=== PATIENT | female | born 1945 ===

== ENCOUNTER 2016-08-25 09:47 | Emergency (ER) | payer MEDICARE, OTHER ==
[2016-08-25 10:07] VITALS: BP 137/82
--- NOTE | 2016-08-25 10:41 | ERNOTE ---
ENT HPI Date of Service: 08/25/16 Time Seen by Provider: 08/25/16 10:12 Source: patient, family Exam Limitations: no limitations - Immun/Allergies/Home Medications Immunizations: IMMUNIZATION HX History of Influenza Vaccine No Hx Pneumococcal Vaccination No Allergies/Adverse Reactions: Allergies Allergy/AdvReac Type Severity Reaction Status Date / Time penicillin G Allergy Verified 08/25/16 10:08 Sulfa (Sulfonamide Allergy Verified 08/25/16 10:08 Antibiotics) tetanus & diphtheria toxoids Allergy Verified 08/25/16 10:08 Home Medications: HOME MEDICATIONS Levothyroxine Sodium [Synthroid] 50 mcg PO DAILY 08/25/16 [Last Taken Unknown] Lisinopril/Hydrochlorothiazide [Lisinopril-Hctz 20-12.5 mg Tab] 1 each PO BID [Last Taken Unknown] - History of Present Illness Narrative: Pt. comes in with c/o L eye pain and swelling for four days. Two days ago pt. was seen by her PCP an was restarted on previous prescription of gentamycin ointment and pt. states that eye drainage and swelling have worsened since restarting this medication. Pt. states that the medication is a old bottle of medication and she did not get a new prescription. Pt. states that light causes her a headache on the L hindu and nothing alleviates the pain or swelling. Review of Systems - Review of Systems Constitutional: Present: no symptoms reported. Absent: chills, weakness, malaise EYE: Present: eye pain, eye discharge, tearing. Absent: blurred vision, double vision, vision changes ENT: Present: nose congestion. Absent: ear pain, pulling on ears, nasal drainage, sore throat Respiratory: Present: no symptoms reported. Absent: shortness of breath, cough , wheezing Cardiology: Present: no symptoms reported. Absent: chest pain, palpitations, edema Gastrointestinal/Abdominal: Present: no symptoms reported. Absent: nausea, vomiting, diarrhea Genitourinary: Present: no symptoms reported Musculoskeletal: Present: no symptoms reported. Absent: back pain, joint pain Skin: Present: no symptoms reported. Absent: rash, change in color Neurological: Present: headache. Absent: dizziness/light-headedness, weakness, numbness, tingling All Other Systems: All systems neg except as marked - Patient's Past Medical History Patient History - Medical: Hypothyroidism Patient History - Cardiac/Respiratory: Hypertension, Hyperlipidemia Patient History - Cancer: No Hx of Cancer Patient History - Other: None - Social History Living Situations: home Psych History: No pertinent hx - Immunizations Hx Pneumococcal Vaccination: No History of Influenza Vaccine: No Physical Exam - Physical Exam General Appearance: Present: wd/wn, alert, no apparent distress Eye Exam: Normal inspection: right, PERRL: bilateral, EOMI: bilateral, Sclera injection: left, Eye drainage: left, Eyelid inflammation: left, Photophobia: left Ears, Nose, Throat: Present: normal ENT inspection, hearing grossly normal, normal pharynx Neck: Present: normal inspection, nontender. 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 Absent: pallor, skin rash ED Progress - Date and Time Seen: Date and Time: 08/25/16 10:29 Pt. refused further exam of eye with flourescein stain and am unable to determine extent of injury without this exam. Pt. able to obtain immediate appointment with her opthamologist while this provider in room. Feel that this would be most appropriate for pt. at this time given pt referral. Pt. understands that she is leaving against medical advice. - Vital Signs Patient's Vital Signs:: I have reviewed the patient's vital signs. Vital Signs: Vital Signs 08/25/16 10:00 Temperature 37.3 C Pulse Rate 117 H Respiratory 12 Rate Blood Pressure 137/82 O2 Sat by Pulse 97 Oximetry - Progress/Reassessment Chief Complaint: Eye Injury/Trauma Departure Clinical Impression: Acute atopic conjunctivitis of left eye - Departure Disposition: Against medical advice Condition: Fair
== END 2016-08-25 10:33 | disposition left against medical advice (07) ==
LOC: ER 09:47
DX: H10.12 Acute atopic conjunctivitis, left eye (principal); Z53.29 Procedure and treatment not carried out because of patient's decision for other reasons; I10 Essential (primary) hypertension; E03.9 Hypothyroidism, unspecified